=== PATIENT | male | born 1980 | race Caucasian/White ===

== ENCOUNTER 2023-07-19 18:32 | Observation (INO) ==
[2023-07-19 20:52] LABS: ABS Basophils 0.1 10^3/uL (0.0-0.1); ABS Lymphocytes 3.1 10^3/uL (1.0-4.8); ABS Monocytes 1.1 10^3/uL (0.0-1.1); ABS Nucleated RBC 0.01 10^3/ul; Eosinophil % 0.3 %; Hemoglobin 15.7 g/dL (13.2-16.3); Lymphocyte % 27.4 %; Mean Corpuscular Hemoglobin 31.1 pg (27-33); Mean Corpuscular Volume 91.5 fL (80-97); Mean Platelet Volume 6.6 fL (7.5-11.2); Nucleated Red Blood Cells % 0.1 %/100WBC (0.0-0.8); Platelet Count 331 10^3/uL (150-450); Red Blood Count 5.03 10^6/uL (4.06-5.63); White Blood Count 11.3 10^3/uL (3.6-10.2)
[2023-07-19 20:53] LABS: Urine Appearance Clear; Urine Bilirubin Negative (Negative); Urine Blood Negative (Negative); Urine Color Colorless; Urine Glucose Negative (Negative); Urine Ketones 1+ (Negative); Urine Nitrite Negative (Negative); Urine Protein Negative (Negative); Urine Specific Gravity 1.007 (1.002-1.030); Urine Urobilinogen Negative (Negative)
[2023-07-19] MEDS: Lactated Ringers 1000 ml BAG 1,000 ML IV ONE (21:01)
[2023-07-19 21:57] LABS: Albumin 4.9 g/dL (3.2-5.2); Albumin/Globulin Ratio 1.6 (1-3); C Reactive Protein 31.57 mg/L (<8.01); Calcium 10.9 mg/dL (8.6-10.3); Creatinine, Serum 0.9 mg/dL (0.67-1.17); Potassium 3.8 mmol/L (3.5-5.0); Total Bilirubin 0.7 mg/dL (0.2-1.0); Total Protein 7.9 g/dL (6.4-8.9); eGFR CKD-EPI 109.4 (>60)
[2023-07-19] MEDS: Iohexol 300 (CONTRAST) 10 ML SDV IV ONE (23:16)
[2023-07-20] MEDS ORDERED: oxyCODONE/Acetamin 5/325 mg TAB PO PRN (00:33)
[2023-07-20] MEDS ORDERED: HYDROmorphone 1 MG/1 ML SYRINGE IV SLOW PU PRN (00:33)
[2023-07-20] MEDS ORDERED: Ondansetron 4 mg VIAL 2 MG/ML 2 ml VIAL IV PRN (00:33)
[2023-07-20] MEDS ORDERED: Calcium Carb (TUMS) 500 mg CHEW TAB PO PRN (00:36)
[2023-07-20] MEDS: NS 0.9% 1000 ml BAG 1,000 ML IV SCH (00:46)
[2023-07-20] MEDS: Piperacillin/Tazobac 3.375 BAG 3.375 GM/100 ML BAG IV ONE (00:48)
[2023-07-20] MEDS: Piperacillin/Tazobac 3.375 BAG 3.375 GM/100 ML BAG IV SCH (04:51)
[2023-07-20] MEDS ORDERED: Rocuronium 50 mg VIAL 10 mg/ml 5 ml VIAL (50 mg) ONE (10:29)
[2023-07-20] MEDS ORDERED: Lidocaine 2% PF 5 ML VIAL ONE (10:29)
[2023-07-20] MEDS ORDERED: fentaNYL 100 mcg/2 ml 50 MCG/ML VIAL ONE ×2 (10:29→11:19)
[2023-07-20] MEDS ORDERED: Dexamethasone IV 4 MG/ML VIAL 1 ml VIAL ONE (10:29)
[2023-07-20] MEDS ORDERED: Ondansetron 4 mg VIAL 2 MG/ML 2 ml VIAL ONE (10:29)
[2023-07-20] MEDS ORDERED: Propofol 10 MG/ML 20 ML BTL ONE (10:29)
[2023-07-20] MEDS ORDERED: Midazolam 5 mg/5 ml VIAL 1 mg/ml 5 ml VIAL (5 mg) ONE (10:30)
[2023-07-20] MEDS ORDERED: Famotidine IV 10 MG/ML 2 ml VIAL (20 mg) ONE (10:46)
[2023-07-20] MEDS ORDERED: Acetaminophen IV 1 GM/100ML 1,000 MG/100 ML BAG IV ONE (11:19)
[2023-07-20] MEDS ORDERED: Bupivacaine 0.25% SDV 30 ML ONE (11:21)
[2023-07-20] MEDS ORDERED: Naloxone 0.4 mg VIAL 0.4 mg/ml 1 ml VIAL IV PRN (11:40)
[2023-07-20] MEDS ORDERED: fentaNYL 100 mcg/2 ml 50 MCG/ML VIAL IV PRN (11:40)
[2023-07-20 12:57] VITALS: BP 118/79
== END 2023-07-20 12:10 | disposition home or self-care (01) ==
LOC: ED 18:32 → AA 18:32 → EDHOLD 18:32 → AA 07-20 09:49
PROVIDERS: ADMIT Surgery; ATTEND Surgery